=== PATIENT | female | born 1935 | race Caucasian/White ===

== ENCOUNTER 2018-11-04 17:20 | Inpatient (IN) | payer MEDICARE, BC ==
[~2018-11-04] VITALS: Ht 160 cm; Wt 69.2 kg
[2018-11-04] MEDS ORDERED: PROZAC20 MG PO (17:28)
[2018-11-04] MEDS ORDERED: XANAX1 MG PO (17:28)
[2018-11-04] MEDS ORDERED: VITAMIN B-122500 MCG PO (17:28)
[2018-11-04] MEDS ORDERED: REGLAN10 MG PO (17:29)
[2018-11-04] MEDS ORDERED: GAS-X180 MG PO (17:29)
[2018-11-04] MEDS ORDERED: AMBIEN10 MG PO (17:30)
[2018-11-04] MEDS ORDERED: PRAVACHOL40 MG PO (17:30)
[2018-11-04] MEDS ORDERED: COZAAR25 MG PO (17:31)
[2018-11-04 18:02] LABS: BASOPHILS 0.2 % (0-2); HEMATOCRIT 39.5 % (36.0-48.0); HEMOGLOBIN 13.9 g/dL (12-16); IMMATURE GRANULOCYTES 0.2 % (0-5); LYMPHOCYTES 37.9 % (15-50); MCH 30.7 pg (26.0-34.0); MCHC 35.2 g/dL (31.0-37.0); MCV 87.2 fL (80.0-100.0); MEAN PLATELET VOLUME 10.4 fL (7.4-10.4); MONOCYTES 9.2 % (2-11); NEUTROPHILS 51.5 % (40-80); PLATELET COUNT 195 10x3/uL (130-400); RBC 4.53 10x6/uL (4.00-5.40); RDW 13.4 % (11.5-14.5); WBC 10.1 10x3/uL (4.8-10.8)
--- NOTE | 2018-11-04 18:18 | NUR ---
DR GIRALDO NOTIFIED AND REVIEWED PT'S BEHAVIOR AND ASSESSMENT RESULTS. PT IS A LOW RISK PER DR GIRALDO. DR GIRALDO STATED TO GIVE RESOURCES TO PT AT TIME OF DISCHARGE. NO FURTHER ORDERS AT THIS TIME. RESOURCES REVIEWED WITH PT AND SHE VERBALIZED UNDERSTANDING. PT STATES THAT SHE HAS HAD FLEETING THOUGHTS OF ENDING HER LIFE. HOWEVER, PT STATES THAT SHE CAN EASILY PUT SUCH THOUGHTS OUT OF HER MIND. STATES, " I AM A SABIANIST AND I WOULD NEVER FOLLOW THROUGH WITH HARMING MYSELF. I AM JUST UNDER A TREMENDOUS AMOUNT OF STRESS AND I NEED HELP." PT EXPRESSES A DESIRE TO ADMIT INTO ALF TO MANAGE MEDICATIONS IN HOPES HER IMPROVING HER DEPRESSIVE STATE. PT STATES THAT SHE IS DEPRESSED AND FEELS THAT HER CURRENT MEDICATION IS NOT EFFECTIVE.
[2018-11-04 18:23] LABS: ALBUMIN 3.7 g/dL (3.4-5.0); BILIRUBIN - TOTAL 0.36 mg/dL (0.2-1.3); CALCIUM 9.6 mg/dL (8.5-10.1); CARBON DIOXIDE 22.8 mmol/L (21.0-32.0); CREATININE - SERUM 1.1 mg/dL (0.6-1.3); POTASSIUM - SERUM 3.8 mmol/L (3.5-5.1); PROTEIN - SERUM 7.1 g/dL (6.4-8.2)
[2018-11-04 19:39] LABS: APPEARANCE CLEAR (CLEAR); BILIRUBIN NEGATIVE (NEGATIVE); COLOR YELLOW (YELLOW); GLUCOSE NEGATIVE (NEGATIVE); KETONE SMALL mg/dL (NEGATIVE); NITRITE NEGATIVE (NEGATIVE); PROTEIN TRACE mg/dL (NEGATIVE); SPECIFIC GRAVITY 1.025 (1.005-1.020); UROBILINOGEN NORMAL (NORMAL)
[2018-11-04 19:41] LABS: BACTERIA MODERATE /hpf (NONE SEEN); EPITHELIAL CELLS 0-5 /hpf (0-5); RED CELLS - URINE 0-5 /hpf (0-5)
[2018-11-04 19:42] LABS: TALC POWDER CRYSTALS 0-5 /hpf (NONE SEEN)
[2018-11-04 19:44] LABS: UDS - AMPHET NEGATIVE QUAL (NEGATIVE); UDS - BARB NEGATIVE QUAL (NEGATIVE); UDS - BENZO POSITIVE QUAL (NEGATIVE); UDS - COCAINE NEGATIVE QUAL (NEGATIVE); UDS - OPIATE NEGATIVE QUAL (NEGATIVE); UDS - PCP NEGATIVE QUAL (NEGATIVE); UDS - THC NEGATIVE QUAL (NEGATIVE)
[2018-11-04 21:21] VITALS: BP 123/54; BMI 24.9
[2018-11-04] MEDS ORDERED: ACETAMINOPHEN325 MG PO (22:41)
--- NOTE | 2018-11-04 22:55 | NUR ---
NEW ADMIT TO DR GIRALDO ON [facility] FROM [facility] ED FOR DEPRESSION. PATIENT TRANSPORTED FROM ED TO [facility] VIA WHEELCHAIR. ACCOMPANIED BY STAFF AND DAUGHTER, MAYA. UPON ARRIVAL TO [facility], PATIENT WAS CALM AND COOPERATIVE WITH ADMISSION ASSESSMENTS, EKG, AND VITALS. CONSENTS TO TREAT SIGNED BY PATIENT. CODE WORD IS MAYA. CODE STATUS DISCUSSED WITH PATIENT AND FAMILY. PATIENT IS TO BE A FULL CODE. PATIENT ORIENTED TO ROOM, UNIT, AND CALL PEÑA SYSTEM. PATIENT RESTING IN BED QUIETLY WITH EYES OPEN. BED IN LOWEST POSITION. 2 SIDE RAILS UP. CALL PEÑA IN REACH. NO FURTHER NEEDS AT THIS TIME.
--- NOTE | 2018-11-05 07:50 | NUR ---
PATIENT DAUGHTER CALLED THIS AM AND INQURIED ABOUT HOW HER MOTHER NIGHT WAS AND HOW HER MORNING IS GOING. PASSCODE GIVEN AND CORRECT. NURSE GAVE INFORMATION ABOUT SLEEP TIMES AND MEDICATION REQUEST. DAUGHTER ASKED WHAT THE MEDICATION WAS AND NURSE EXPLAINED.
--- NOTE | 2018-11-05 08:43 | NUR ---
B) The patient is awake and alert, she admits she is depressed and she says she did not sleep well last night. She also admits that she fell at home before she got here on her right buttocks, did assess the area and there is no bruising noted. I) Provide prescribed meds. R) The patient says she has been on prozac for close to six weeks she says she feels like it has helped a little bit but then she says it does not feel better other times. P) Continue POC.
[2018-11-05 09:14] LABS: BASOPHILS 0.1 % (0-2); HEMOGLOBIN 13.4 g/dL (12-16); IMMATURE GRANULOCYTES 0.1 % (0-5); LYMPHOCYTES 26.8 % (15-50); MCH 30.1 pg (26.0-34.0); MCHC 34.4 g/dL (31.0-37.0); MCV 87.6 fL (80.0-100.0); MEAN PLATELET VOLUME 10.2 fL (7.4-10.4); MONOCYTES 6.6 % (2-11); NEUTROPHILS 65.4 % (40-80); PLATELET COUNT 190 10x3/uL (130-400); RBC 4.45 10x6/uL (4.00-5.40); RDW 13.5 % (11.5-14.5)
[2018-11-05 09:28] LABS: WBC 6.7 10x3/uL (4.8-10.8)
[2018-11-05 09:57] LABS: ALBUMIN 3.7 g/dL (3.4-5.0); ANION GAP 15.1 mmol/L (8-16); BILIRUBIN - TOTAL 0.52 mg/dL (0.2-1.3); CARBON DIOXIDE 26.2 mmol/L (21.0-32.0); CHOL - HDL RATIO 3.5 ratio (2.3-4.1); CREATININE - SERUM 0.9 mg/dL (0.6-1.3); LDL-HDL RATIO 2.2 ratio (1.5-3.5); POTASSIUM - SERUM 4.3 mmol/L (3.5-5.1); PROTEIN - SERUM 6.5 g/dL (6.4-8.2); THYROID STIMULATING HORMONE 1.24 uIU/mL (0.36-3.74)
[2018-11-05 13:14] VITALS: Ht 160 cm; Wt 69.2 kg
--- NOTE | 2018-11-05 15:36 | NUR ---
The patient is awake and alert, she says she has not slept and she feels anxious. Did offer her ativan 0.5 mg po now.
--- NOTE | 2018-11-05 16:05 | NUR ---
The patient states "The medicine is not working yet." Explained to her that sometimes it takes awhile.
[2018-11-05 20:41] VITALS: BP 126/63
--- NOTE | 2018-11-05 22:00 | NUR ---
LAYING IN BED. AWAKE. RELATED "I'M NOT FEELING SLEEPY YET. I DIDN'T DRINK MUCH WATER SO I WOULDN'T HAVE TO GET UP AND GO TO THE BATHROOM."
--- NOTE | 2018-11-05 22:20 | NUR ---
REC'D PT SITTING IN CHAIR. ORIENTED X4. RELATES REASON FOR HOSPITALIZATION IS "TO GET SOME HELP TO MAKE ME FEEL BETTER. HELP WITH MY DEPRESSION. TRY TO GET MY MEDICINE RIGHT." CALM AND COOPERATIVE. ADMINISTER MEDS PER ORDERS Q SHIFT AND MONITOR COMPLIANCE. ENCOURAGE PATIENT TO VOICE FEELINGS AND CONCERNS TO STAFF Q SHIFT AND NEEDED. MED COMPLIANT. GOAL ORIENTED IS AWARE OF THE DEPRESSION AND WANTING TO GET MEDICATION RIGHT TO MAKE HER FEEL BEETER. CONTINUE POC AND PROVIDE SAFE ENVIRONMENT.
--- NOTE | 2018-11-06 08:06 | NUR ---
REC'D PATIENT SITTING IN CHAIR AWAITING BREAKFAST. RESP EVEN AND NONLABORED. NO ACUTE DISTRESS NOTED. PT SLEPT 8 HOURS. STAFF ASSISTED TO BATHROOM NEEDED. BED ALARM IN PLACE AND ACTIVE. PT ORIENTED X4. AMBULATES. NO BEHAVIOR NOTED FROM PREVIOUS SHIFT. WILL CONT PLAN OF CARE.
[2018-11-06 08:10] LABS: RAPID PLASMA REAGIN Non Reactive (Non Reactive)
[2018-11-06 08:15] VITALS: BP 102/52
[2018-11-06 09:20] VITALS: BP 102/52
--- NOTE | 2018-11-06 12:39 | PSY ---
PATIENT NAME:SANDRINE JACQUES MEDICAL RECORD: [id number] : 35 LOCATION:[facility] ADMISSION DATE: 11/04/18 ACCOUNT: [id number] PSYCHIATRIC EVALUATION DATE OF EVALUATION: 11/05/18 IDENTIFYING DATA: The patient is 83 years old and she is admitted to the hospital on a voluntary basis. CHIEF COMPLAINT: Depression. HISTORY OF PRESENT ILLNESS: The patient presented to the Emergency Room reporting depression, anxiety, and ongoing thoughts of self-harm, which she is reluctant to act on because of her Baptism gary. She tells me that if it were not for her Baptism gary that she would kill herself that she feels helpless, hopeless, isolated and withdrawn. She relates this to having to care for her ill and apparently he has had medical problems since an accident 30 years ago. The problems have changed and gotten worse, but she has cared for him all of this time. She has been tried on various antidepressants with little or no effect. She denies psychotic symptoms. She is also most concerned about being unable to sleep adequately. PAST MEDICAL HISTORY: Significant for hypertension, osteoarthritis, and a left mastectomy. PAST PSYCHIATRIC HISTORY: None by her account, although over the past 3 months, she has had serious depressive issues. FAMILY HISTORY: Noncontributory. ALLERGIES: SULFA. CURRENT MEDICATIONS: Includes Xanax, Prozac, Reglan, Pravachol, Cozaar, Ambien, and Tylenol. SOCIAL HISTORY: The patient is . She has adult children. She has no history of drug or alcohol abuse and functioned well socially and occupationally. MENTAL STATUS EXAMINATION: The patient is awake, alert, and oriented fully to person, place, time and situation. Her mood is depressed. Her affect is constricted. Thought processes are circumstantial. Memory, concentration, and abstraction abilities are moderately impaired and she denies any active intent to harm herself or others as well as overt psychotic symptoms. ASSETS: Supportive family members. LIABILITIES: Limited insight. DIAGNOSTIC IMPRESSION: AXIS I: Major depressive disorder, single episode, severe without psychotic features. AXIS II: None. AXIS III: Hypertension, hyperlipidemia, and gastroesophageal reflux disease. AXIS IV: Moderate stressors. AXIS V: Global assessment of functioning is 30. PLAN: At this time, the patient is admitted to the hospital for a comprehensive medical, psychological, and social evaluation. She will be treated with both mood stabilizing and memory enhancing medications. Her long-term prognosis is guarded. TRANSINT:[id number] Voice Confirmation ID: [id number] DOCUMENT ID: [id number] ROXANN GIRALDO MD at 1239 CC: [id number] DICTATION DATE: 11/05/181818 EXTRUSION DIE TEMPLATE MAKER: 11/05/18 1830 ADM IN [place] [id number] [place] [id number]
[2018-11-06 20:36] VITALS: BP 92/43
--- NOTE | 2018-11-06 20:49 | NUR ---
PATIENT IS QUIET, STAYS TO HERSELF, CAN MAKE NEEDS KNOWN, COMPLIANT WITH MEDS, HAS INSIGHT TO HER SITUATION. WILL FOLLOW POC
--- NOTE | 2018-11-07 00:41 | NUR ---
PATIENT HAS NOT BEEN SLEEPING THIS SHIFT THIS FAR, HER LIGHTS HAVE BEEN OFF PER HER REQUEST. ATIVAN GIVEN PO FOR FEELINGS OF ANXIOUSNESS.
[2018-11-07 08:00] VITALS: BP 99/62
--- NOTE | 2018-11-07 08:53 | NUR ---
PATIENT SITTING AND EATING BREAKFAST AT THIS TIME. PT ABLE TO MAKE NEEDS KNOWN. PT IS ORIENTED X4 AND ALERT. PT C/O OF BEING DIZZY. PT IN ASSISSTIVE DEVICE TO PREVENT A FALL. VITALS SIGNS: 99/62, 91, 98.1, 18, 96%. PT SLPET 4.25 HOURS. EDI COORDINATOR DID PROVIDE A PO ATIVAN 0.5 MG. WILL CONT PLAN OF CARE.
--- NOTE | 2018-11-07 11:14 | PN ---
PATIENT:SANDRINE JACQUES MEDICAL RECORD: [id number] LOCATION:[facility] ADMISSION DATE: 11/04/18 PROGRESS NOTE DATE OF SERVICE: 11/06/2018 SUBJECTIVE: The patient's case was discussed with staff. She has no new complaint. OBJECTIVE: The patient denies intent to harm herself or others. She is tolerating her medicines well. ASSESSMENT: No change in diagnoses. PLAN: Current medicines have been reviewed and will be maintained. I am going to start her on Effexor for its antidepressant effect. TRANSINT:[id number] Voice Confirmation ID: [id number] DOCUMENT ID: [id number] ROXANN GIRALDO MD at 1114 CC: [id number] DICTATION DATE: 11/06/18 1253 HOT ROOM ATTENDANT: 11/06/18 1258 ADM IN [place] [address] [place] [address]
[2018-11-07 20:50] VITALS: BP 99/46
--- NOTE | 2018-11-07 23:39 | NUR ---
RECEIVED IN BEDROOM. RESTING IN BED WITH EYES CLOSED. RESPONDS TO VOCIE. CALM AND COOPERATIVE WITH CARE AND ASSESSMENT. ENCOURAGE TO EXPRESS NEEDS. RESTING IN BED WITH EYES CLOSED AT THIS TIME. CONTINUE PLAN OF CARE
[2018-11-08 08:26] VITALS: BP 105/60
--- NOTE | 2018-11-08 11:22 | NUR ---
RECEIVED PT. IN DINING ROOM FOR B'FAST, ALERT, CALM, QUIET, DEPRESSED MOOD, COOPERATIVE. MEDS ADMIN PER ORDERS WITH COMPLETE MED COMPLIANCE NOTED. CONT POC DIRECTED.
--- NOTE | 2018-11-08 13:42 | PN ---
PATIENT:SANDRINE JACQUES MEDICAL RECORD: [id number] LOCATION:[facility] ADMISSION DATE: 11/04/18 PROGRESS NOTE DATE OF SERVICE: 11/07/2018 SUBJECTIVE: The patient's case was discussed with staff. She has no new complaint. OBJECTIVE: The patient is in good behavioral control. She has poor insight about her condition. She is tolerating her medicines well. Unfortunately, she did not sleep well last night. ASSESSMENT: No change in diagnoses. PLAN: I am going to give the patient a higher dose of Xanax at bedtime secondary to the poor response to the lower dose. She is obsessively focused on sleep. I am sure the sleep disruption is related to her depression. She will be monitored for clinical changes associated with its use. TRANSINT:[id number] Voice Confirmation ID: [id number] DOCUMENT ID: [id number] ROXANN GIRALDO MD at 1342 CC: [id number] DICTATION DATE: 11/07/18 1121 ASSISTANT LOAN PROCESSOR: 11/07/18 1202 ADM IN [place] [id number] [place] [address]
--- NOTE | 2018-11-08 21:03 | NUR ---
RECEIVED IN HALLWAY OUTSIDE OF NURSES STATION IN A WHELLCHAIR. CALM AND COOPERATIVE WITH CARE AND ASSESSMENT. ENCOURAGE TO EXPRESS NEEDS AND FEELINGS. STATES THAT SHE HAS DEPRESSION RELATED TO GOING HOME AND TAKING CARE OF HER SICK . SOCIALIZED WITH PATIENT FOR A WHILE. CONTINUES TO SIT IN WHEELCHAIR AT NURSES STATION. CONTINUE PLAN OF CARE
[2018-11-08 21:25] VITALS: BP 93/45
[2018-11-09 08:00] VITALS: BP 92/45
--- NOTE | 2018-11-09 12:20 | PN ---
PATIENT:SANDRINE JACQUES MEDICAL RECORD: [id number] LOCATION:[facility] ADMISSION DATE: 11/04/18 PROGRESS NOTE DATE OF SERVICE: SUBJECTIVE: The patient's case was discussed with staff. She has no new complaint. OBJECTIVE: The patient is in good behavioral control with limited insight about her condition. She tolerates her medicines well. ASSESSMENT: No change in diagnoses. PLAN: Supportive and educational interventions were made. Long-term prognosis is guarded. TRANSINT:[id number] Voice Confirmation ID: [id number] DOCUMENT ID: [id number] ROXANN GIRALDO MD at 1220 CC: [id number] DICTATION DATE: 11/08/18 1520 AUTOMATIC GRINDER OPERATOR: 11/08/18 1822 ADM IN [place] [address] [place] [address]
--- NOTE | 2018-11-09 18:32 | NUR ---
RESTING QUIETLY IN RECLINER, WATCHING TV AND VISITING WITH PEERS, CALM, QUIET, PLEASANT, COOPERATIVE. MOOD SEEMS SOMEWHAT IMPROVED. COMPLIANT WITH PLAN OF CARE, CONT POC DIRECTED.
[2018-11-09 21:02] VITALS: BP 108/53
--- NOTE | 2018-11-09 23:50 | NUR ---
RECEIVED IN HALLWAY SITTING IN A RECLINING CHAIR OUTSIDE OF NURSES STATION. SOCIALIZING AT TIMES WITH PEERS. ENCOURAGE TO EXPRESS NEEDS. RESTING IN BED WITH EYES CLOSED. CONTINUE PLAN OF CARE
[2018-11-10 08:30] VITALS: BP 82/60
--- NOTE | 2018-11-10 09:56 | PN ---
PATIENT:SANDRINE JACQUES MEDICAL RECORD: [id number] LOCATION:[facility] ADMISSION DATE: 11/04/18 PROGRESS NOTE DATE OF SERVICE: 11/09/2018 SUBJECTIVE: The patient's case was discussed with staff. She has no new complaint. OBJECTIVE: The patient is significantly and unacceptably sleepy. I am going to stop both her trazodone and Xanax and will allow her to wash these out. TRANSINT:[id number] Voice Confirmation ID: [id number] DOCUMENT ID: [id number] ROXANN GIRALDO MD at 0956 CC: [id number] DICTATION DATE: 11/09/18 1228 HEALTH ASSESSMENT AND TREATMENT TEACHER: 11/09/18 1254 ADM IN [place] [id number] [place] [address]
--- NOTE | 2018-11-10 18:48 | NUR ---
ALERT AND ORIENTED X2.FLAT AFFECT.DENIES SUICIDAL THOUGHTS,STATES I'M A CHRISTIANITY ,I WOULDN'T DO THAT.IS COMPLIANT WITH STAFF AND MEDS.WILL CONTINUE WITH PLAN OF CARE,MONITOR FOR SAFETY AND CHANGES.
[2018-11-10 20:46] VITALS: BP 125/60
--- NOTE | 2018-11-11 01:16 | NUR ---
PATIENT IS DEPRESSED, STAYS TO HERSELF, MAKES NEEDS KNOW, COMPLIANT WITH MEDS. WILL FOLLOW POC
[2018-11-11 09:29] VITALS: BP 110/57
--- NOTE | 2018-11-11 11:09 | NUR ---
B) The patient says she did not sleep well, but payroll and benefits assistant says she slept 7.5 hours. Explained to her again that she needs to hold her hand up to let staff know she is awake. She says "Well, how do they know I am sleeping?" Explained to her that "Staff go in your room." Her mood is flat and she is nonreactive in affect. Asked her if she is depressed and she said "Yes" She is not interacting as much as she had the last time I spoke to her. She is saying she is too weak to walk. Explained to her that she needs to walk, but staff did assist her to ambulate. I) Provide prescribed meds. R) The patient is compliant with meds. P) Continue POC.
--- NOTE | 2018-11-11 14:06 | NUR ---
TEAM TREATMENT REVIEW DIET: Regular Diet PO INTAKE: 89% x 9 meals WT: 11/04- 140 lbs, 11/07- 144.8 lbs BM: x 1 on 11/10 MEDS: Miralax, Vit 12, Pravastatin LABS: LDL- 120(H), Vit B12- 1984(H) GOALS: PO intake > 75%, stable wt, BM q 3 days, maintain skin integrity, Vit B12 WNL Will continue to monitor closely Clinical Dietitian Following
--- NOTE | 2018-11-11 15:02 | PN ---
PATIENT:SNADRINE JACQUES MEDICAL RECORD: [id number] LOCATION:[facility] ADMISSION DATE: 11/04/18 PROGRESS NOTE DATE OF SERVICE: 11/10/2018 SUBJECTIVE: The patient's case was discussed with staff. She has no new complaint. OBJECTIVE: The patient is in good behavioral control. She has limited insight about her situation. She is tolerating her medicines well. She has been hypotensive for unknown reasons. ASSESSMENT: No change in diagnoses. PLAN: I am not sure why the patient is hypotensive. I think this is what is making do not feel well. I am going to discontinue her Effexor and will monitor her blood pressure. TRANSINT:[id number] Voice Confirmation ID: [id number] DOCUMENT ID: [id number] ROXANN GIRALDO MD at 1502 CC: [id number] DICTATION DATE: 11/10/18 1554 PUMPER GAUGER APPRENTICE: 11/10/18 2323 ADM IN [place] [id number] [place] [address]
[2018-11-11 20:48] VITALS: BP 124/59
--- NOTE | 2018-11-11 23:19 | NUR ---
B) Patient is alert and oriented to person, place and time, I) Administered scheduled medications as ordered, monitored for needs, R) mediation compliant, pleasant and friendly toward staff, P) Continue plan of care.
[2018-11-12 08:51] VITALS: BP 110/54
--- NOTE | 2018-11-12 12:18 | NUR ---
B) The patient is awake and alert, she is depressed, but she did smile alittle. She is ambulating. I) Provide prescribed meds. R) The patient is compliant with meds. P) Continue POC.
--- NOTE | 2018-11-12 12:49 | NUR ---
The patient's daughter Viola Olivares expresses her wishes to speak to Dr. Otto because she explained to Estefania Dallas RN that her mother is not able to go home. Estefania explained that Doug Khalil is our Assembler [employer]ps and she is the one that assists families with placement. Ms. Olivares says she would like to speak to Dr. Otto. Ms. Olivares phone number is .
--- NOTE | 2018-11-12 16:03 | NUR ---
SPOKE WITH PT'S DAUGHTER AT LENGTH IN REGARDS TO PT CONDITION, BEHAVIOR, MEDICTIONS, TREATMENT PLAN AND DISCHARGE PLANNING AND RESOURCES. REVIEWED PT'S SLEEPING AMOUNT AND INTAKE FOOD PERCENTAGE FOR PREVIOUS DAY. DAUGHTER VERBALIZED UNDERSTANDING. DR. GIRALDO TO CALL MAYA ONCE HE GETS TO HOSPITAL. PT IS MORE AWAKE TODAY BUT CONTINUES TO BE DEPRESSED AND REFUSING TO DO GROUP ACTIVITIES. ONE ON ONE GROUP DONE WITH PT AND CAR MANAGER AND DIRECTOR. COPING SKILLS EDUCATED ATTEMPTED TO GET PT TO READ HER BIBLE DUE TO HER DAUGHTER STATING SHE USED TO LOVE "BIBLE STUDY". PT ONLY READ 4 PAGES. ENCOURAGED PT TO CONTINUE WITHOUT SUCCESS. DAUGHTER THANKED ME FOR MY TIME AND FOR HELPING HER.
--- NOTE | 2018-11-12 16:06 | PN ---
PATIENT:SANDRINE JACQUES MEDICAL RECORD: [id number] LOCATION:[facility] ADMISSION DATE: 11/04/18 PROGRESS NOTE DATE OF SERVICE: 11/11/2018 SUBJECTIVE: The patient's case was discussed with staff. She has no new complaint. OBJECTIVE: The patient tolerates her medicines well. She has pretty limited insight about her situation. She says she is not suicidal. She seems awfully withdrawn and blunted. She complains that she did not sleep last night, although the nursing staff put down 8 hours of sleep. ASSESSMENT: No change in diagnoses. PLAN: The patient will be given a low dose of Celexa to assist with her mood disorder. Her blood pressure has improved. I will give her a low dose of trazodone to assist with sleep consolidation. TRANSINT:[id number] Voice Confirmation ID: [id number] DOCUMENT ID: [id number] ROXANN GIRALDO MD at 1606 CC: [id number] DICTATION DATE: 11/11/18 1603 HAND DRAWER IN HELPER: 11/11/18 1709 ADM IN [facility] [address] [place] [id number]
--- NOTE | 2018-11-12 16:13 | NUR ---
SW SPOKE WITH PT AND ENCOURAGED HER TO EAT A SNACK. PT REFUSED. SW DID GET PT TO DRINK SOME WATER WHILE DISCUSSING SYMPTOMS AND POSSIBLE COPING SKILLS SHE CAN USE. SW GAVE PT A BIBLE AND ASKED HER TO READ IT FOR FIVE MINUTES. PT COMPLIED WITH ACTIVITY. LAVINIA ASKED PT ABOUT HER GRATITIUDE LIST FOR TODAY AND SHE STATED I AM NOT VERY GRATEFUL FOR ANYTHING. PT HAS A FLAT AFFECT AND CONTINUES TO HAVE SOMATIC COMPLAINTS.
--- NOTE | 2018-11-13 04:45 | NUR ---
B) Patient is alert and oriented to person, place and time, calm and cooperative with staff I) Administered scheduled medications as ordered, monitored for needs, R) Medication compliant, pleasant and friendly P) Continue plan of care.
--- NOTE | 2018-11-13 09:53 | NUR ---
B) The patient is awake and alert, her mood is blunted, but her affect is reactive. She did smile this am. She interacts with staff appropriately. She denies S.I., but remains depressed, but did say she felt better this am. I) Provide prescribed meds. R) The patient is compliant with meds and unit milieu. P) Continue POC.
[2018-11-13 10:41] VITALS: BP 121/41
--- NOTE | 2018-11-13 12:25 | PN ---
PATIENT:SANDRINE JACQUES MEDICAL RECORD: [id number] LOCATION:[facility] ADMISSION DATE: 11/04/18 PROGRESS NOTE DATE OF SERVICE: 11/12/2018 SUBJECTIVE: The patient's case was discussed with staff. She has no new complaint. OBJECTIVE: The patient slept 8-1/2 hours last night. She still has a depressed mood. ASSESSMENT: No change in diagnoses. PLAN: Current medicines have been reviewed and will be maintained. Long-term prognosis is guarded. TRANSINT:[id number] Voice Confirmation ID: [id number] DOCUMENT ID: [id number] ROXANN GIRALDO MD at 1225 CC: [id number] DICTATION DATE: 11/12/18 1711 TEACHER ADULT EDUCATION: 11/12/18 2212 ADM IN [address] [address]
--- NOTE | 2018-11-13 18:25 | NUR ---
PATIENT'S AND DAUGHTER CAME TO VISIT TODAY AND A GOOD VISIT WAS ENJOYED BY ALL PARTIES.
[2018-11-13 20:16] VITALS: BP 109/58
--- NOTE | 2018-11-14 01:04 | NUR ---
B.) PT IS ALERT AND ORIENTED X4. SHE IS PLEASANT WITH STAFF AND PEERS. SHE IS ABLE TO MAKE NEEDS KNOWN. SHE IS ADL INDEPENDENT. I.) PROVIDED PM MEDICATIONS. R.) COMPLIANT WITH ALL MEDICATIONS. P.) CONTINUE PLAN OF CARE
[2018-11-14 07:00] VITALS: BP 113/53
--- NOTE | 2018-11-14 18:33 | NUR ---
ORIENTED X 4.COMPLIANT WITH STAFF AND MEDS.WILL CONTINUE WITH CURRENT PLAN OF CARE,MONITOR FOR CHANGES AND SAFETY.NO AGGRESSION OBSERVED.
[2018-11-14 20:00] VITALS: BP 124/51
--- NOTE | 2018-11-14 23:10 | NUR ---
RECEIVED IN DAYROOM. SITTING IN A CHAIR WITH PEERS AT HER SIDE. CALM AND COOPERATIVE WITH CARE AND ASSESSMENT. ENCOURAGE TO EXPRESS NEEDS. RESTING IN BED WITH EYES CLOSED AT THIS TIME. CONTINUE PLAN OF CARE
[2018-11-15 08:00] VITALS: BP 142/62
--- NOTE | 2018-11-15 10:16 | PN ---
PATIENT:SANDRINE JACQUES MEDICAL RECORD: [id number] LOCATION:[facility] ADMISSION DATE: 11/04/18 PROGRESS NOTE DATE OF SERVICE: 11/14/2018 SUBJECTIVE: The patient's case was discussed with staff. She has no new complaint. OBJECTIVE: The patient was anxious last night and received p.r.n. Haldol and Ativan. She complains bitterly about not sleeping adequately. ASSESSMENT: No change in diagnoses. PLAN: I am going to treat the patient with a higher dose of trazodone to assist with sleep consolidation. Her long-term prognosis is guarded. TRANSINT:[id number] Voice Confirmation ID: [id number] DOCUMENT ID: [id number] ROXANN GIRALDO MD at 1016 CC: [id number] DICTATION DATE: 11/14/18918 PRODUCT SAFETY PROFESSIONAL: 11/14/18 1010 ADM IN [place] [id number] [place] [id number]
--- NOTE | 2018-11-15 10:16 | PN ---
PATIENT:SANDRINE JACQUES MEDICAL RECORD: [id number] LOCATION:LEN[facility] ADMISSION DATE: 11/04/18 PROGRESS NOTE DATE OF SERVICE: 11/13/2018 SUBJECTIVE: The patient's case was discussed with staff. She has no new complaint. OBJECTIVE: The patient is running a little higher blood pressure than she previously was. She is still feeling fatigued. She denies that she would harm herself or others. She is oriented fully. She did not eat breakfast. She did not eat lunch or dinner yesterday for reasons that are unclear, but probably just related to her severe depression. TRANSINT:[id number] Voice Confirmation ID: [id number] DOCUMENT ID: [id number] ROXANN GIRALDO MD at 1016 CC: [id number] DICTATION DATE: 11/13/18 1237 PRESSURE WASHER: 11/13/18 1312 ADM IN [place] [address] [place] [address]
--- NOTE | 2018-11-15 14:24 | NUR ---
PT IS ALERT AND ORIENTED X4. CALM AND COOPERATIVE WITH ASSESSMENT. MED COMPLIANT. DENIES SI AT THIS TIME, PT STILL APPEARS DEPRESSED. NO BEHAVIORS NOTED AT THIS TIME. FALL PRECAUTIONS IN PLACE FOR SAFETY. WILL CPOC.
[2018-11-16 00:24] VITALS: BP 120/60
[2018-11-16 08:19] VITALS: BP 114/55
--- NOTE | 2018-11-16 15:20 | PN ---
PATIENT:SANDRINE JACQUES MEDICAL RECORD: [id number] LOCATION:[facility] ADMISSION DATE: 11/04/18 PROGRESS NOTE DATE OF SERVICE: 11/15/2018 SUBJECTIVE: The patient's case was discussed with staff. She has no new complaint. OBJECTIVE: The patient did not sleep very well last night, but staff tells me that she took several naps through the day. She did eat well. She is anxious to leave here and wants to go to rehabilitation. Her mood seems a little better. She is smiling and animated a little and she again is still denying that she would seek to harm herself. ASSESSMENT: Major depression. PLAN: The patient tells me today that her father had severe depression and underwent ECT. I am certain she did not tell me this before. I routinely ask patients about any history of depression and mental health treatment and although I cannot specifically say I definitely remember asking her about this, I am pretty sure I did and she just did not bring it up before. This does not change what I am going to do to try to help her, but it is good information to have that her father late in life developed a severe depression. He was not adequately treated with medications and he underwent ECT treatment. I asked her if she would be interested in this as a possibility and she says no because the treatments made him very confused. At this point, I think it is reasonable to continue her on her current antidepressant and seek rehabilitative services if she will qualify. TRANSINT:[id number] Voice Confirmation ID: [id number] DOCUMENT ID: [id number] ROXANN GIRALDO MD at 1520 CC: [id number] DICTATION DATE: 11/15/18 1228 APPEALS REVIEWER VETERAN: 11/15/18 1238 ADM IN [facility] [address] [place] [address]
--- NOTE | 2018-11-16 16:19 | NUR ---
updated pt's daughter madeleine in regards to pt condition and discharge planning. verbalized understanding.
--- NOTE | 2018-11-16 20:19 | NUR ---
RECEIVED IN DAYROOM. SITTING IN A CHAIR WITH PEERS AT HER SIDE. CALM AND COOPERATIVE WITH CARE AND ASSESSMENT. ENCOURAGE TO EXPRESS NEEDS. SITTING QUIETLY AT THIS TIME. CONTINUE PLAN OF CARE
[2018-11-16 20:21] VITALS: BP 102/47
[2018-11-17 08:34] VITALS: BP 119/59
--- NOTE | 2018-11-17 09:10 | NUR ---
PT AM MEDS ADMINISTERED. PT REFUSED MIRALAX AND VOLTAREN GEL. PT SITTING UP EATING BREAKFAST AT THIS TIME. WCTM.
--- NOTE | 2018-11-17 15:25 | PN ---
PATIENT:SANDRINE JACQUES MEDICAL RECORD: [id number] LOCATION:[facility] ADMISSION DATE: 11/04/18 PROGRESS NOTE DATE OF SERVICE: 11/16/2018 SUBJECTIVE: The patient's case was discussed with staff. She has no new complaint. OBJECTIVE: The patient is sleeping very well. She slept almost 10 hours last night. Her mood has improved as well. She is smiling and interacting more. ASSESSMENT: Major depression. PLAN: The patient was wanting to go to rehab and we discussed this at the treatment team. If the family would like a referral for that, we will of course make it, but given how ambulatory and independent she is I am certain they are not going to accept her. The patient is wanting to go home. Her daughters and are considering other options for her. I think given her presentation when she came in, I can justify her stay a little bit longer, but she certainly does not meet criteria for an involuntary stay if she wanted to leave or demanded to leave. She has improved dramatically. TRANSINT:[id number] Voice Confirmation ID: [id number] DOCUMENT ID: [id number] ROXANN GIRALDO MD at 1525 CC: [id number] DICTATION DATE: 11/16/18 1544 TESTING ENGINEER: 11/16/18 1644 ADM IN [id number] [place] [id number]
[2018-11-17 20:00] VITALS: BP 112/47
--- NOTE | 2018-11-18 02:11 | NUR ---
B) Patient is alert and oriented to person and place, quiet and keeps to herself I) Administered scheduled medications as ordered, monitored for safety R) Mediation compliant, sleeping quietly in his bed, P) Continue plan of care.
[2018-11-18 10:47] VITALS: BP 131/41
--- NOTE | 2018-11-18 11:55 | NUR ---
RECEIVED PT IN DINING ROOM AT [facility], ALERT, CALM, COOPERATIVE, SAD AFFECT. MEDS ADMIN PER ORDERS WITH COMPLETE MED COMPLIANCE NOTED. CONT POC DIRECTED.
--- NOTE | 2018-11-18 14:15 | NUR ---
TEAM TRE[facility]: DIET: Regular Diet PO INTAKE: 90% x 8 meals WT: 11/07-144.8 lbs; 11/14-151.4 lbs BM: x 1 on 11/16 MEDS: Miralax, Vit B12 LABS: LDL-120(H), Vit G76-7006(H) GOALS: PO intake >/= 75%, BM q 3 days, stable wt DHS, Maintain skin integrity Will continue to monitor closely Clinical Deititian Following
--- NOTE | 2018-11-18 15:07 | PN ---
PATIENT:SANDRINE JACQUES MEDICAL RECORD: [id number] LOCATION:[facility] ADMISSION DATE: 11/04/18 PROGRESS NOTE DATE OF SERVICE: 11/17/2018 SUBJECTIVE: The patient's case was discussed with staff. She has no new complaint. OBJECTIVE: The patient is in good behavioral control with poor insight about her condition. She is tolerating her medicines well. ASSESSMENT: No change in diagnoses. PLAN: Current medicines have been reviewed. Apparently, the family is now looking at assisted living. The patient is wanting very much to go home, but I have asked her if she would stay until those arrangements are made and hoping it will not be more than a day or two and she has agreed to do that. TRANSINT:[id number] Voice Confirmation ID: [id number] DOCUMENT ID: [id number] ROXANN GIRALDO MD at 1507 CC: [id number] DICTATION DATE: 11/17/18 1643 HOSE SPRAYER: 11/17/18 2319 ADM IN [id number] [place] [address]
[2018-11-18 20:14] VITALS: BP 114/51
--- NOTE | 2018-11-19 04:03 | NUR ---
B.) PT IS ALERT AND ORIENTED X4. SHE IS PLEASANT AND STATES AN IMPROVEMENT IN HER MOOD TODAY. SHE AMBULATES AND CAN MAKE NEEDS KNOWN. SHE IS CALM AND COOPERATIVE. I.) PROVIDED PM MEDICATIONS. R.) COMPLIANT WITH ALL MEDICATIONS. P.) CONTINUE PLAN OF CARE
[2018-11-19 08:43] VITALS: BP 117/54
[2018-11-19 09:15] VITALS: BP 131/41
--- NOTE | 2018-11-19 09:42 | NUR ---
B) The patient is awake and alert, she is pleasant and she says she feels less depressed today. She ambulates independently. I) Provide prescribed meds. R) The patient is compliant with meds and unit milieu. P) Continue POC.
--- NOTE | 2018-11-19 16:02 | PN ---
PATIENT:SANDRINE JACQUES MEDICAL RECORD: [id number] LOCATION:[facility] ADMISSION DATE: 11/04/18 PROGRESS NOTE DATE OF SERVICE: 11/18/2018 SUBJECTIVE: The patient's case was discussed with staff. She has no new complaint. OBJECTIVE: The patient is in good behavioral control and has no thoughts of harming herself or others. Her mood is almost completely euthymic. ASSESSMENT: Major depression. PLAN: The patient's family has made arrangements for her to go to an assisted living center. They should have her room ready on Thursday. I anticipate she can be transitioned out of the hospital on Saturdays if this level of improvement continues. TRANSINT:[id number] Voice Confirmation ID: [id number] DOCUMENT ID: [id number] ROXANN GIRALDO MD at 1602 CC: [id number] DICTATION DATE: 11/18/18 1601 INTERACTIVE MEDIA SPECIALIST: 11/18/18 2335 ADM IN [id number] [place] [address]
[2018-11-19] MEDS ORDERED: MIRALAX17 GM PO (16:15)
[2018-11-19] MEDS ORDERED: CELEXA20 MG PO (16:15)
[2018-11-19] MEDS ORDERED: VITAMIN B-121000 MCG PO (16:15)
[2018-11-19] MEDS ORDERED: DESERYL PO (16:15)
[2018-11-19] MEDS ORDERED: MELATONIN 3 MG1 TAB PO (16:16)
[2018-11-19 20:17] VITALS: BP 106/38
--- NOTE | 2018-11-19 21:33 | NUR ---
PATIENT TENDS TO STAY TO HERSELF, HOWEVER HER AFFECT IS BRIGHTER THAN USUAL. COMPLIANT WITH MEDS. WILL FOLLOW POC
[2018-11-20 07:30] VITALS: BP 120/51
--- NOTE | 2018-11-20 11:18 | NUR ---
B) The patient is flat in affect she is blunted in answers, she has poor insight into her situation. She knows she is leaving today, but she is a bit nervous about it. She remains depressed, but denies S.I. I) Provide prescribed meds. R) The patient is compliant with meds. P) Continue POC.
--- NOTE | 2018-11-20 12:44 | PN ---
PATIENT:SANDRINE JACQUES MEDICAL RECORD: [id number] LOCATION:[facility] ADMISSION DATE: 11/04/18 PROGRESS NOTE DATE OF SERVICE: 11/19/2018 SUBJECTIVE: The patient's case was discussed with staff. She has no new complaint. OBJECTIVE: The patient is in good behavioral control with limited insight about her condition. She has a depressed mood, but no thoughts of harming herself or others. ASSESSMENT: Major depression. PLAN: The patient will be transitioned out of the hospital into the [facility] tomorrow. Long-term prognosis is guarded. TRANSINT:[id number] Voice Confirmation ID: [id number] DOCUMENT ID: [id number] ROXANN GIRALDO MD at 1244 CC: [id number] DICTATION DATE: 11/19/18 1614 QUALITY TECH: 11/19/18 192 ADM IN [facility] [address] [place] [address]
--- NOTE | 2018-11-20 14:12 | NUR ---
PATIENT FAMILY CAME TO PICK PATIENT UP BELONGINGS GIVEN TO FAMILY EXCEPT FOR A BLUE PAIR OF SLIPPERS. STAFF WAS UNABLE TO FIND SLIPPERS. PATIENT FAMILY ASKED ABOUT A REFERRAL FOR PATIENT TO SEE SOMEONE AFTER DISCHARGE. NURSE EXPLAINED NO APPOINTMENT WAS IN THE NOTES FOR DISCHARGE. FAMILY STATED THEY WOULD CALL DR. GIRALDO. NURSE OFFERED TO SPEAK WITH [facility] AND FIND SOME INFORMAITON. SHE SAID SHE CALL DR. GIRALDO. WENT OVER PATIENT MEDICATIONS WITH DAUGHTER AND TOLD HER THE FACILITY SHE WAS DISCHARGING TO WOULD PROVIDE HER MEDICATIONS. PAPERWORK FAXED TO FACILITY. REPORT GIVEN TO DAVID SINCLAIR AT 1141 AND PAPERWORK FAXED TO FACILITY.
--- NOTE | 2018-11-20 15:05 | NUR ---
Patient did go to [facility] and they did call to request that we call Sefer[facility] to [facility] and the daughter will pick it up.
--- NOTE | 2018-11-21 11:29 | PN ---
PATIENT:SANDRINE JACQUES MEDICAL RECORD: [id number] LOCATION:[facility] ADMISSION DATE: 11/04/18 PROGRESS NOTE DATE OF SERVICE: 11/20/2018 SUBJECTIVE: The patient's case was discussed with staff. She has no new complaint. OBJECTIVE: The patient denies intent to harm herself or others. Her mood is near euthymic. She is eating and sleeping well. ASSESSMENT: No change in diagnoses. PLAN: The patient will be transitioned out of the hospital today. She is going to go to assisted living and follow up will be with her primary care physician and Dr. Brown. TRANSINT:[id number] Voice Confirmation ID: [id number] DOCUMENT ID: [id number] ROXANN GIRALDO MD at 1129 CC: [id number] DICTATION DATE: 11/20/18 1317 WATER RESOURCES TECHNICAL OFFICER: 11/20/18 1404 DIS IN 11/20/18 [id number] [place] [address]
--- NOTE | 2018-11-23 09:25 | DS ---
PATIENT:SANDRINE JACQUES :35 MEDICAL RECORD: [id number] DISCHARGE SUMMARY ADMISSION DATE: 11/04/18 DISCHARGE DATE: 11/20/18 IDENTIFYING DATA: The patient is 83 years old and she is admitted to the hospital on a voluntary basis. CHIEF COMPLAINT: "I cannot sleep." HISTORY OF PRESENT ILLNESS: The patient is a very nice elderly woman under a great deal of stress. Her is disabled and requires a great deal of care. She has been overwhelmed and trying to manage things and her adult daughter from [place] has come to help even though that is a major imposition on her and her family. The patient tells me she has thought about killing herself, but says she will not do so because of her Buddhism gary. She endorses numerous neurovegetative depressive symptoms and feels helpless, hopeless, isolated, and withdrawn. She is very focused on not sleeping. HOSPITAL COURSE: The patient was admitted to the hospital and fully evaluated from both a medical, psychological, and social standpoint. She was found to be severely depressed and was treated with antidepressant medications. She has been taking medication that had not been effective. Her medicine was changed. Efforts to assist her with sleep consolidation had resulted in some temporary over sedation, but eventually an adequate dose was arranged that allowed her to sleep reasonably at night and not be overly depressed. The patient is emotionally not able to care for her . There is a great deal of guilt she has about this as well as a great deal of guilt, she feels about imposing upon her daughter. The patient was interested in going to assisted living and arrangements were made for that to happen. She felt very relieved not to have to worry about bills, housekeeping, cooking, preparing his medicines and a variety of other things that she just simply feels overwhelmed and trying to handle. DISCHARGE DIAGNOSES: AXIS I: Major depression, single episode, severe without psychotic features. AXIS II: None. AXIS III: Hypertension, hyperlipidemia, gastroesophageal reflux disease. AXIS IV: Moderate stressors. AXIS V: Global assessment of functioning is 40. PLAN: At the time of discharge, the patient had significantly improved and had a near euthymic mood. She was tolerating her antidepressant medicines well and sleeping well. Followup is to be with Dr. Christel Brown. Her long-term prognosis is guarded. TRANSINT:[id number] Voice Confirmation ID: [id number] DOCUMENT ID: [id number] DISCHARGE SUMMARY REPORT [id number] SANDRINE JACQUES PETER MD at 0925 CC: [id number] DICTATION DATE: 11/22/18 1556 COIL PLACER: 11/23/18 0444 DIS IN 11/20/18 [facility] [address] [id number]
== END 2018-11-20 14:19 | disposition home or self-care (01) | DRG 881 ==
LOC: D.ER 17:20 → D.PSYCH 20:24
PROVIDERS: Family Medicine; ADMIT Psychiatry & Neurology Psychiatry; ATTEND Psychiatry & Neurology Psychiatry
DX: F32.9 Major depressive disorder, single episode, unspecified (principal); R45.851 Suicidal ideations; I10 Essential (primary) hypertension; E78.5 Hyperlipidemia, unspecified; K21.9 Gastro-esophageal reflux disease without esophagitis; E53.8 Deficiency of other specified B group vitamins; G47.00 Insomnia, unspecified; M19.91 Primary osteoarthritis, unspecified site; G25.81 Restless legs syndrome